=== PATIENT | female | born 1980 | race Caucasian/White ===

== ENCOUNTER → 2019-10-30 | Outpatient (CLI) | payer OTHER | END | disposition home or self-care (01) | LOC: CFH 12:52 | PROVIDERS: ATTEND Nurse Practitioner Family | DX: N64.4 Mastodynia (principal); N64.89 Other specified disorders of breast | CPT/HCPCS: 76642; 77066; G0279 ==

== ENCOUNTER → 2021-02-11 | Outpatient (CLI) | payer OTHER | END | disposition home or self-care (01) | LOC: CFH 08:43 | PROVIDERS: ATTEND Nurse Practitioner Family | DX: R92.2 Inconclusive mammogram (principal); N63.20 Unspecified lump in the left breast, unspecified quadrant; N64.4 Mastodynia; H93.13 Tinnitus, bilateral; Z80.3 Family history of malignant neoplasm of breast | CPT/HCPCS: 76642; 77062; 77066; G0279 ==

== ENCOUNTER → 2021-03-11 | Outpatient (CLI) | payer OTHER | END | disposition home or self-care (01) | LOC: CFH 07:06 | PROVIDERS: ATTEND Nurse Practitioner Family | DX: N63.21 Unspecified lump in the left breast, upper outer quadrant (principal) | CPT/HCPCS: 19083 ==